=== PATIENT | male | born 1970 | race Hispanic/Latino ===

== ENCOUNTER 2018-01-09 20:03 | Emergency (ER) | payer SELFPAY ==
[2018-01-09] MEDS ORDERED: KETOROLAC TROMETHAMINE 60 MG/2 ML VIAL ONE (20:18)
[2018-01-09] MEDS ORDERED: DEXAMETHASONE SOD PHOSPHATE 10MG/ML 1ML VIAL ONE (20:18)
== END 2018-01-09 20:58 | disposition home or self-care (01) ==
LOC: EDH 20:03
DX: M25.561 Pain in right knee (principal); M25.562 Pain in left knee
CPT/HCPCS: 73562 ×2; 96372 ×2; 99284; J1100; J1885

== ENCOUNTER 2023-12-30 15:52 | Emergency (ER) | payer OTHER ==
[~2023-12-30] VITALS: Ht 167.6 cm; Wt 102.1 kg
[2023-12-30] MEDS ORDERED: AMOX1TAB16 PO (17:05)
[2023-12-30] MEDS ORDERED: IBUP-2070 PO (17:05)
[2023-12-30] MEDS: TETANUS/DIPHTHERIA TOXOID [ADULT] 0.5 ML VIAL IM ONE (17:56)
[2023-12-30] MEDS: ACETAMINOPHEN WITH CODEINE 1 TAB TAB PO ONE (17:58)
[2023-12-30 17:59] VITALS: BP 159/92; PULSE 66; RESP 20; O2SAT 98
== END 2023-12-30 18:07 | disposition home or self-care (01) ==
LOC: EDH 15:52
DX: S41.132A Puncture wound without foreign body of left upper arm, initial encounter (principal); Z79.899 Other long term (current) drug therapy; Z98.890 Other specified postprocedural states; W54.0XXA Bitten by dog, initial encounter; Y93.89 Activity, other specified; Y92.89 Other specified places as the place of occurrence of the external cause; Y99.8 Other external cause status
CPT/HCPCS: 73060; 90471; 90714